=== PATIENT | female | born 1945 | race Caucasian/White ===

== ENCOUNTER 2022-04-21 14:26 | Inpatient (IN) | payer MEDICARE ==
[~2022-04-21] VITALS: Ht 154.9 cm; Wt 65.3 kg
--- NOTE | 2022-04-21 14:35 | NUR ---
BIB RA 97 C/O L HIPE PAIN S/P TRIPPING OVER A CABLE AND FALLING. 100MCG OF FENTANL GIVEN TRAINING AND DEVELOPMENT ASSISTANT. VITALS ARE WITHIN NORMAL LIMITS. AWAITING MD BRAUN.
--- NOTE | 2022-04-21 14:53 | NUR ---
X RAY AT BEDSIDE
[2022-04-21] MEDS ORDERED: MORPHINE SULFATE INJ 4 MG/ML DISP.SYRIN ONE (15:13)
[2022-04-21] MEDS ORDERED: ONDANSETRON HCL/PF 4 MG/2 ML VIAL ONE (15:13)
[2022-04-21] MEDS ORDERED: HYDROMORPHONE 1 MG/1 ML DISP.SYRIN ONE ×2 (15:28→16:44)
[2022-04-21] MEDS ORDERED: IV NS 0.9% 1,000 ML BAG IV ONE (15:30)
[2022-04-21] MEDS ORDERED: ONDANSETRON HCL/PF 4 MG/2 ML VIAL IVP ONE (15:30)
[2022-04-21] MEDS ORDERED: HYDROMORPHONE INJ 2 MG/ML DISP.SYRIN IV ONE ×2 (15:30→17:00)
[2022-04-21] MEDS ORDERED: MORPHINE SULFATE INJ 2 MG/ML DISP.SYRIN IV ONE (15:30)
[2022-04-21 15:35] LABS: BASOPHILS % (AUTO) 0.3 % (0.0-2.0); EOSINOPHILS % (AUTO) 0.3 % (0.0-6.0); HEMATOCRIT 37 % (33-45); HEMOGLOBIN 12.1 g/dL (11.5-14.8); LYMPHOCYTES # (AUTO) 1.3 K/uL (0.8-4.8); LYMPHOCYTES % (AUTO) 12.1 % (20.0-44.0); MEAN CORPUSCULAR HGB CONC 33 g/dl (31.0-36.0); MEAN CORPUSCULAR VOLUME 91 fL (82-100); MONOCYTES # (AUTO) 0.5 K/uL (0.1-1.30); MONOCYTES % (AUTO) 4.7 % (2.0-12.0); NEUTROPHILS # (AUTO) 8.5 K/uL (1.8-8.9); NEUTROPHILS % (AUTO) 82.6 % (43.0-81.0); PLATELET COUNT (AUTO) 256 K/uL (150-450); RED BLOOD CELL COUNT(AUTO) 4.01 MIL/uL (4.0-5.2); WHITE BLOOD COUNT (AUTO) 10.3 K/uL (4.3-11.0)
[2022-04-21 15:53] LABS: ALANINE AMINOTRANSFERASE 41 U/L (12-78); ALBUMIN 3.8 g/dL (3.4-5.0); ALKALINE PHOSPHATASE 69 U/L (46-116); ASPARTATE AMINOTRANSFERASE 30 U/L (15-37); BILIRUBIN,DIRECT 0.1 mg/dL (0.0-0.2); BILIRUBIN,TOTAL 0.7 mg/dL (0.2-1.0); CALCIUM, SERUM 8.7 mg/dL (8.5-10.1); CARBON DIOXIDE 29 mmol/L (21-32); CHLORIDE 108 mmol/L (98-107); CREATININE 0.7 mg/dL (0.6-1.3); GLUCOSE 96 mg/dL (74-106); SODIUM SERUM 142 mmol/L (136-145); TOTAL PROTEIN, SERUM 7.3 g/dL (6.4-8.2); UREA NITROGEN, BLOOD 15 mg/dL (7-18)
--- NOTE | 2022-04-21 16:28 | NUR ---
ROOM 321-1
[2022-04-21] MEDS ORDERED: RIVA10TA PO (16:36)
[2022-04-21] MEDS ORDERED: LEVO75TA7 PO (16:36)
[2022-04-21] MEDS ORDERED: FLEC50TA2 PO (16:36)
--- NOTE | 2022-04-21 16:51 | NUR ---
PT STILL C/O PAIN, DR BALDERAS AWARE. PT MEDICATED ORDERED. SEE EMAR.
--- NOTE | 2022-04-21 17:25 | NUR ---
REPORT GIVEN TO NURSE WAGNER FOR MAURA
--- NOTE | 2022-04-21 18:22 | NUR ---
THE PATIENT IS TRANSFERED TO ROOM 321-1 IN STABLE CONDITION AND PER ACLS POLICY.
[2022-04-21 20:00] VITALS: BP 129/66
--- NOTE | 2022-04-21 20:30 | NUR ---
ADMISSION Patient Addendum: 04/21/22 at 2104 by NAHOMY MCNEIL RN ADMISSION NOTES 76 years old Female arrived to unit today at 1830 per report. Patient is Alert Oriented x4. Limited movement RLE d/t fracture right hip, s/p fall from home. SG Aguilar spoke with the patient and daughter at bedside. Patient plan for OR 48 hours after last dose of Xarelto. Patient states she had Xarelto last night (04/20/22) at 11pm. Regular diet, See catheter as ordered.
--- NOTE | 2022-04-21 20:50 | NUR ---
PAIN Patient in bed, c/o right hip pain. Patient allergy to Morphine per records, patient was given Dilaudid in ER and was tolerated. Patient states she can take Dilaudid without bad reaction. Notified EXCEL SPECIALIST Annamarie Marks with orders placed. Dilaudid 1mg IV q6H PRN.
[2022-04-21] MEDS: HYDROMORPHONE 1 MG/1 ML DISP.SYRIN IV PRN (21:20)
--- NOTE | 2022-04-21 21:23 | NUR ---
PAIN Right hip pain 8/10 described as sharp and pulling. PRN Dilaudid given, will reassess pain level. Fall precaution maintained.
--- NOTE | 2022-04-21 22:00 | NUR ---
SNYDER CATHETER Patient is continent bowel and bladder. Right hip fx. Plan OR. Inserted Snyder catheter for marianna operative. Procedure explained to patient, verbalized understanding.
--- NOTE | 2022-04-22 06:22 | NUR ---
END OF SHIFT REPORT Patient in bed. Stable on room air. Limited movement RLE d/t fx right hip. Right hip pain managed with PRN Dilaudid. See catheter care done. Plan for OR possible surgery right hip fx. Fall precaution maintained. Will endorse to oncoming RN.
[2022-04-22 08:00] VITALS: BP 101/55
[2022-04-22] MEDS: LEVOTHYROXINE SODIUM 75 MCG TABLET PO SCH (08:37)
[2022-04-22] MEDS: HYDROMORPHONE 1 MG/1 ML DISP.SYRIN IV PRN ×2 (08:41→19:55)
[2022-04-22] MEDS ORDERED: ACETAMINOPHEN 325 MG TABLET PO PRN (10:00)
[2022-04-22] MEDS ORDERED: ONDANSETRON HCL/PF 4 MG/2 ML VIAL IVP PRN (10:00)
--- NOTE | 2022-04-22 10:58 | NUR ---
RN OPENING NOTE PATIENT AWAKE IN BED RESTING. A/O X 4. NO PAIN NOTED AT THIS TIME. ON ROOM AIR, NO DISTRESS OR SHORTNESS OF BREATH NOTED. IV ACCESS L HAND #20G, INTACT, PATENT AND FLUSHING WELL. PATIENT HAVE A SNYDER CATHETER IN PLACE AND DRAINING WELL. FALL AND SAFETY MEASURES IN PLACE, BED ALARM ON, BED IN LOW AND LOCK POSITION, CALL LIGHT AND TABLE WITHIN EASY REACH, SIDE RAILS UP X2. WILL CONTINUE TO MONITOR.
[2022-04-22 11:02] LABS: BASOPHILS % (AUTO) 0.3 % (0.0-2.0); EOSINOPHILS % (AUTO) 1.4 % (0.0-6.0); HEMATOCRIT 32 % (33-45); HEMOGLOBIN 10.5 g/dL (11.5-14.8); LYMPHOCYTES # (AUTO) 1.1 K/uL (0.8-4.8); LYMPHOCYTES % (AUTO) 11.2 % (20.0-44.0); MEAN CORPUSCULAR HGB CONC 33 g/dl (31.0-36.0); MEAN CORPUSCULAR VOLUME 92 fL (82-100); MONOCYTES # (AUTO) 0.6 K/uL (0.1-1.30); MONOCYTES % (AUTO) 6.2 % (2.0-12.0); NEUTROPHILS # (AUTO) 7.9 K/uL (1.8-8.9); NEUTROPHILS % (AUTO) 80.9 % (43.0-81.0); PLATELET COUNT (AUTO) 202 K/uL (150-450); RED BLOOD CELL COUNT(AUTO) 3.43 MIL/uL (4.0-5.2); WHITE BLOOD COUNT (AUTO) 9.8 K/uL (4.3-11.0)
[2022-04-22 11:21] LABS: CALCIUM, SERUM 8.3 mg/dL (8.5-10.1); CARBON DIOXIDE 29 mmol/L (21-32); CHLORIDE 107 mmol/L (98-107); CREATININE 0.7 mg/dL (0.6-1.3); GLUCOSE 108 mg/dL (74-106); POTASSIUM 3.9 mmol/L (3.5-5.1); SODIUM SERUM 139 mmol/L (136-145); UREA NITROGEN, BLOOD 12 mg/dL (7-18)
[2022-04-22 16:00] VITALS: BP 124/54
--- NOTE | 2022-04-22 18:52 | NUR ---
RN CLOSING NOTE PATIENT AWAKE IN BED RESTING. A/O X 4. NO PAIN NOTED AT THIS TIME. ON ROOM AIR, NO DISTRESS OR SHORTNESS OF BREATH NOTED. IV ACCESS L HAND #20G, INTACT, PATENT AND FLUSHING WELL. PATIENT HAVE A SNYDER CATHETER IN PLACE AND DRAINING WELL, OUTPUT 200ML. FALL AND SAFETY MEASURES IN PLACE, BED ALARM ON, BED IN LOW AND LOCK POSITION, CALL LIGHT AND TABLE WITHIN EASY REACH, SIDE RAILS UP X2. WILL ENDORSE TO WET MACHINE TENDER.
--- NOTE | 2022-04-22 20:01 | NUR ---
RN OPENING NOTE PATIENT AWAKE IN BED RESTING. A/O X 4. NO PAIN NOTED AT THIS TIME. ON ROOM AIR, NO RESPIRATORY DISTRESS OR SHORTNESS OF BREATH NOTED. PT REPORTED PAIN 8/10 PRN DILAUDID GIVEN AND TOLERATED WELL.IV ACCESS L HAND #20G, INTACT, PATENT AND FLUSHING WELL. PATIENT HAVE A SNYDER CATHETER IN PLACE AND DRAINING WELL, OUTPUT 200ML. FALL AND SAFETY MEASURES IN PLACE, BED ALARM ON, BED IN LOW AND LOCK POSITION, CALL LIGHT AND TABLE WITHIN EASY REACH, SIDE RAILS UP X2. WILL CONTINUE TO MONITOR.
[2022-04-22 20:20] VITALS: BP 90/52
--- NOTE | 2022-04-23 07:30 | NUR ---
RN Opening Note. PT AOx4, sleeping but easily aroused. Patient shows no signs of distress, aware of today's plan for surgery. All safety precautions taken, call light and table within reach, bed at lowest position. Will continue to monitor throughout shift, and will work with Surgery.
[2022-04-23 08:00] VITALS: BP 134/57
[2022-04-23 08:21] LABS: BASOPHILS % (AUTO) 0.3 % (0.0-2.0); EOSINOPHILS % (AUTO) 1.3 % (0.0-6.0); HEMATOCRIT 32 % (33-45); HEMOGLOBIN 10.7 g/dL (11.5-14.8); LYMPHOCYTES # (AUTO) 0.8 K/uL (0.8-4.8); LYMPHOCYTES % (AUTO) 7.9 % (20.0-44.0); MEAN CORPUSCULAR HGB CONC 34 g/dl (31.0-36.0); MEAN CORPUSCULAR VOLUME 92 fL (82-100); MONOCYTES # (AUTO) 0.5 K/uL (0.1-1.30); MONOCYTES % (AUTO) 5.2 % (2.0-12.0); NEUTROPHILS # (AUTO) 8.9 K/uL (1.8-8.9); NEUTROPHILS % (AUTO) 85.3 % (43.0-81.0); PLATELET COUNT (AUTO) 193 K/uL (150-450); WHITE BLOOD COUNT (AUTO) 10.4 K/uL (4.3-11.0)
[2022-04-23 09:34] LABS: CALCIUM, SERUM 8.8 mg/dL (8.5-10.1); CREATININE 0.6 mg/dL (0.6-1.3); MAGNESIUM 2.1 mg/dL (1.8-2.4); PHOSPHORUS 2.4 mg/dL (2.5-4.9); POTASSIUM 3.9 mmol/L (3.5-5.1)
[2022-04-23] MEDS: LEVOTHYROXINE SODIUM 75 MCG TABLET PO SCH (10:15)
[2022-04-23] MEDS ORDERED: VANCOMYCIN 1 GM VIAL ONE (10:24)
[2022-04-23] MEDS ORDERED: ANESTHESIA TRAY IN PYXIS 1 EA TRAY MC ONE (10:27)
[2022-04-23] MEDS ORDERED: BUPIVACAINE 0.25% 75 MG/30 ML VIAL ONE (10:28)
[2022-04-23] MEDS ORDERED: HYDROMORPHONE INJ 2 MG/ML DISP.SYRIN ONE (11:23)
[2022-04-23] MEDS ORDERED: ROCURONIUM BROMIDE 50 MG/5 ML ONE (11:23)
[2022-04-23 12:00] VITALS: BP 107/44
[2022-04-23] MEDS: HYDROMORPHONE 1 MG/1 ML DISP.SYRIN IV PRN (13:54)
[2022-04-23] MEDS: IV D5/0.45 NACL W/20 MEQ KCL 1L IV SCH ×2 (14:19)
[2022-04-23] MEDS ORDERED: Sodium Phosphate 15 MMOL in IV NS 0.9% 245 ML IV SCH (16:00)
[2022-04-23] MEDS: ANCEF 1 GM/50 ML D5W IV SCH ×2 (17:13)
--- NOTE | 2022-04-23 19:42 | NUR ---
RN Closing Notes PT AOx4, able to express her own concerns. States she is comfortable with pain 2/10. Medications running as prescribed to Right hand 20g IV, no signs of infiltration, no pain reported. See urine output is 100ml during my shift. Patient made aware of PT consult and eval in order to ambulate. Dressing clean, dry and intact. All safety precautions taken with patient, no incidents, call light and table within reach, bed at lowest position.
--- NOTE | 2022-04-23 19:43 | NUR ---
RN OPENING NOTE PATIENT AWAKE IN BED RESTING. AA/O X 4. ON ROOM AIR PATRICK WELL.NO SOB/DISTRESS NOTED.NO COMPLAINE OF PAIN/DISCOMFORT AT THIS TIME.IV ACCESS L HAND #20G, INTACT, PATENT AND FLUSHING WELL. PATIENT HAVE A SNYDER CATHETER IN PLACE AND DRAINING BRIDGET URINE.FALL AND SAFETY MEASURES IN PLACE, BED ALARM ON, BED IN LOW AND LOCK POSITION, CALL LIGHT AND TABLE WITHIN EASY REACH, SIDE RAILS UP X2. WILL CONTINUE TO MONITOR.
[2022-04-23 20:00] VITALS: BP 106/46
[2022-04-24] MEDS: ANCEF 1 GM/50 ML D5W IV SCH ×4 (01:14→11:06)
[2022-04-24] MEDS: IV D5/0.45 NACL W/20 MEQ KCL 1L IV SCH ×4 (02:46→17:13)
--- NOTE | 2022-04-24 06:19 | NUR ---
RN CLOSING NOTES; PATIENT AWAKE IN BED RESTING. AA/O X 4. ON ROOM AIR PATRICK WELL.NO SOB/DISTRESS NOTED.NO COMPLAINE OF PAIN/DISCOMFORT AT THIS TIME.IV ACCESS L HAND #20G, INTACT, PATENT AND FLUSHING WELL.DUE MEDS GIVEN ORDERED.ALL NEEDS ATTENDED, PATIENT HAVE A SNYDER CATHETER IN PLACE AND DRAINING BRIDGET URINE OUTPUT 250ML.FALL AND SAFETY MEASURES IN PLACE, BED ALARM ON, BED IN LOW AND LOCK POSITION, CALL LIGHT AND TABLE WITHIN EASY REACH, SIDE RAILS UP X2. WILL ENDORSED TO NEXT SHIFT.
--- NOTE | 2022-04-24 07:23 | NUR ---
RN OPENING NOTE RECEIVED PATIENT IN BED, AWAKE, A/O X4, VERBALLY RESPONSIVE, NO SIGNS OF ACUTE DISTRESS NOTED. ON ROOM AIR, TOLERATING WELL. NO SOB NOTED, BREATHING EVEN AND UNLABORED. WITH IV ACCESS ON LEFT HAND #20G, INTACT AND PATENT, WITH D5 1/2 NS + 20 MEQ KCL INFUSING @ 75 ML/HR. DENIES ANY PAIN AT THIS TIME. F/C INTACT AND PATENT DRAINING CLEAR YELLOW URINE. SAFETY MEASURE IN PLACE. BED IN LOWEST AND LOCKED POSITION, SIDE RAILS UP X2, CALL LIGHT PLACED WITHIN EASY REACH. WILL CONTINUE TO MONITOR PATIENT.
[2022-04-24] MEDS: LEVOTHYROXINE SODIUM 75 MCG TABLET PO SCH (07:58)
[2022-04-24 08:00] VITALS: BP 128/57
[2022-04-24 11:49] LABS: BASOPHILS % (AUTO) 0.2 % (0.0-2.0); EOSINOPHILS % (AUTO) 0.7 % (0.0-6.0); HEMATOCRIT 30 % (33-45); HEMOGLOBIN 10.1 g/dL (11.5-14.8); LYMPHOCYTES # (AUTO) 1.3 K/uL (0.8-4.8); LYMPHOCYTES % (AUTO) 13.5 % (20.0-44.0); MEAN CORPUSCULAR HGB CONC 34 g/dl (31.0-36.0); MEAN CORPUSCULAR VOLUME 92 fL (82-100); MONOCYTES % (AUTO) 10.3 % (2.0-12.0); NEUTROPHILS # (AUTO) 7.4 K/uL (1.8-8.9); NEUTROPHILS % (AUTO) 75.3 % (43.0-81.0); PLATELET COUNT (AUTO) 205 K/uL (150-450); RED BLOOD CELL COUNT(AUTO) 3.27 MIL/uL (4.0-5.2); WHITE BLOOD COUNT (AUTO) 9.9 K/uL (4.3-11.0)
[2022-04-24 12:01] LABS: CALCIUM, SERUM 8.6 mg/dL (8.5-10.1); CREATININE 0.7 mg/dL (0.6-1.3); POTASSIUM 3.9 mmol/L (3.5-5.1)
[2022-04-24 16:00] VITALS: BP 129/56
[2022-04-24] MEDS ORDERED: HEPARIN SODIUM, PORCINE 5000 UNITS/1 ML VIAL SQ SCH (18:00)
[2022-04-24] MEDS ORDERED: HEPARIN SODIUM, PORCINE 5000 UNITS/1 ML VIAL IVF ONE (18:00)
[2022-04-24] MEDS: DOCUSATE SODIUM 100 MG CAPSULE PO SCH (18:15)
[2022-04-24] MEDS: HYDROCODONE/APAP 10/325MG TABLET PO PRN (18:24)
--- NOTE | 2022-04-24 18:50 | NUR ---
RN CLOSING NOTES PATIENT IN BED, AWAKE, A/O X4, VERBALLY RESPONSIVE, NO SIGNS OF ACUTE DISTRESS NOTED. REMMIANS STABLE ON ROOM AIR, NO SOB NOTED, BREATHING EVEN AND UNLABORED. IV ACCESS ON LEFT HAND #20G, INTACT AND PATENT, WITH D5 1/2 NS + 20 MEQ KCL INFUSING @ 75 ML/HR. MEDICATED FOR PAIN ORDERED. DRESSING ON RIGHT HIP CLEAN, DRY AND INTACT. ABDUCTOR PILLOW IN PLACE. WITH F/C INTACT AND PATENT DRAINING CLEAR YELLOW URINE. SAFETY MEASURE IN PLACE. BED IN LOWEST AND LOCKED POSITION, SIDE RAILS UP X2, CALL LIGHT PLACED WITHIN EASY REACH. WILL ENDORSE TO NEXT SHIFT FOR MAURA.
--- NOTE | 2022-04-24 19:30 | NUR ---
MS RN OPENING NOTE RECEIVED PATIENT RESTING IN BED; AWAKE, ALERT AND ORIENTED X4,VERBALLY RESPONSIVE. BREATHING EVEN AND NONLABORED. ON ROOM AIR; WELL TOLERATED. NO SOB NOTED. NOT IN ANY FORM OF RESPIRATORY DISTRESS. WITH IV ACCESS ON LEFT HAND 20G; PATENT AND INTACT INFUSING WITH D5 1/2 + 20 MEQ KCL REGULATED @ 75 ML/HR; FLUSHES WELL, NO INFILTRATION NOTED. WITH SNYDER CATHETER IN PLACE DRAINING TO CLEAR YELLOW URINE OUTPUT. ABLE TO MAKE NEEDS KNOWN. SAFETY MEASURES IMPLEMENTED: CALL LIGHT AND TABLE WITHIN REACH, SIDE RAILS UP X2, BED IN LOWEST LOCKED POSITION. WILL CONTINUE TO MONITOR.
[2022-04-24 20:00] VITALS: BP 129/43
[2022-04-25 06:22] LABS: HEMATOCRIT 28 % (33-45); LYMPHOCYTES % (AUTO) 19.6 % (20.0-44.0); MEAN CORPUSCULAR HGB CONC 33 g/dl (31.0-36.0); MEAN CORPUSCULAR VOLUME 92 fL (82-100); MONOCYTES % (AUTO) 10.1 % (2.0-12.0); NEUTROPHILS % (AUTO) 66.8 % (43.0-81.0); PLATELET COUNT (AUTO) 186 K/uL (150-450); RED BLOOD CELL COUNT(AUTO) 2.99 MIL/uL (4.0-5.2)
[2022-04-25 06:23] LABS: BASOPHILS # (AUTO) 0.1 K/uL (0.0-0.2); BASOPHILS % (AUTO) 0.6 % (0.0-2.0); EOSINOPHILS % (AUTO) 2.9 % (0.0-6.0); LYMPHOCYTES # (AUTO) 1.8 K/uL (0.8-4.8); MONOCYTES # (AUTO) 0.9 K/uL (0.1-1.30)
[2022-04-25] MEDS: IV D5/0.45 NACL W/20 MEQ KCL 1L IV SCH ×2 (06:28)
--- NOTE | 2022-04-25 06:48 | NUR ---
MS RN CLOSING NOTES PATIENT IN BED; AWAKE, A/O X4, VERBALLY RESPONSIVE. STABLE ON ROOM AIR. NO SOB NOTED. RESPIRATIONS EVEN AND UNLABORED. IN NO ACUTE DISTRESS. WITH IV ACCESS ON LEFT HAND 20G; INTACT AND PATENT INFUSING WITH D5 1/2 NS + 20 MEQ KCL REGULATED @ 75 ML/HR; FLUSHES WELL. WITH DRESSING ON RIGHT HIP CLEAN, DRY AND INTACT. ABDUCTOR PILLOW IN PLACE. WITH SNYDER CATHETER IN PLACE; INTACT AND PATENT DRAINING YELLOW URINE OUTPUT. SAFETY MEASURES IN PLACE: CALL LIGHT WITHIN REACH, SIDE RAILS UP X2, BED IN LOWEST LOCKED POSITION. ENDORSED TO MORNING NURSE FOR CONTINUITY OF CARE.
--- NOTE | 2022-04-25 07:30 | NUR ---
MS RN OPENING NOTES RECEIVED PATIENT ON BED AWAKE AND A/O X4. ON ROOM AIR TOLERATING WELL. NO SOB NOTED. NOT IN DISTRESS. WITH NO COMPLAINTS OF PAIN OR DISCOMFORT AT THIS TIME. WITH IV ACCESS AT LEFT HAND G20 WITH IVF D5 1/2NS + KCL 20MEQ AT 75ML/HR INFUSING WELL. WITH SNYDER CATHETER IN PLACED DRAINING TEA-COLORED URINE. SAFETY MEASURES IN PLACED. CALL LIGHT WITHIN REACH. BED ON LOWEST LOCKED POSITION, SIDE RAILS UP X2. WILL CONTINUE TO MONITOR.
[2022-04-25 07:52] LABS: CARBON DIOXIDE 28 mmol/L (21-32); CHLORIDE 106 mmol/L (98-107); CREATININE 0.6 mg/dL (0.6-1.3); GLUCOSE 103 mg/dL (74-106); PHOSPHORUS 2.2 mg/dL (2.5-4.9); POTASSIUM 4.1 mmol/L (3.5-5.1); SODIUM SERUM 138 mmol/L (136-145); UREA NITROGEN, BLOOD 11 mg/dL (7-18)
[2022-04-25] MEDS ORDERED: RIVAROXABAN 10 MG TABLET PO SCH (09:00)
[2022-04-25] MEDS: LEVOTHYROXINE SODIUM 75 MCG TABLET PO SCH (09:01)
[2022-04-25] MEDS: DOCUSATE SODIUM 100 MG CAPSULE PO SCH (09:01)
[2022-04-25 09:57] VITALS: BP 123/59
[2022-04-25] MEDS: HYDROCODONE/APAP 10/325MG TABLET PO PRN (10:45)
[2022-04-25] MEDS ORDERED: DOCU-141 PO (11:34)
[2022-04-25] MEDS ORDERED: NEUTRA PHOS 1 POWD.PACKET PO ONE (16:30)
[2022-04-25 16:32] VITALS: BP 117/54
--- NOTE | 2022-04-25 18:20 | NUR ---
MS RN CLOSING NOTES PATIENT ON BED AWAKE AND A/O X4. ON ROOM AIR TOLERATING WELL. NO SOB NOTED. NOT IN DISTRESS. WITH NO COMPLAINTS OF PAIN OR DISCOMFORT AT THIS TIME. WITH IV ACCESS AT LEFT HAND G20 WITH IVF D5 1/2NS + KCL 20MEQ AT 75ML/HR INFUSING WELL. WITH SNYDER CATHETER IN PLACED DRAINING TEA-COLORED URINE. DUE MEDS GIVEN. SAFETY MEASURES IN PLACED. CALL LIGHT WITHIN REACH. BED ON LOWEST LOCKED POSITION, SIDE RAILS UP X2. WILL ENDORSE TO NEXT SHIFT FOR MAURA.
--- NOTE | 2022-04-25 19:00 | NUR ---
RN NOTE CALLED FRED SHEARER AND GIVEN REPORT TO MADONNA SINGH.
--- NOTE | 2022-04-25 20:05 | NUR ---
MS LANDSCAPING SUPERVISOR NOTE PATIENT AWAKE IN BED, ALERT/ORIENTED X 4, PT STABLE ON RA, NO S/S OF DISTRESS OR SOB NOTED, BREATHING EVEN AND UNLABORED. PATIENT PICKED UP BY EMT'S AND GOING TO [facility]. DISCHARGE PAPERS SIGNED BY PATIENT. BELONGINGS TAKEN BY PATIENT'S DAUGHTER. LEFT HAND IV ACCESS REMOVED. DRESSING ON RIGHT HIP CHANGED. PATIENT LEFT WITH SNYDER CATHETER IN PLACE PER DAYSHIFT RN.
== END 2022-04-25 20:10 | DRG 522 ==
LOC: ER 14:47 → MED 20:14
PROVIDERS: ADMIT Nurse Practitioner Acute Care; ATTEND Nurse Practitioner Acute Care
PROC: 0SRR0JA Replacement of Right Hip Joint, Femoral Surface with Synthetic Substitute, Uncemented, Open Approach (ICD-10-PCS; principal; 2022-04-23)
DX: S72.011A Unspecified intracapsular fracture of right femur, initial encounter for closed fracture (principal); D68.59 Other primary thrombophilia; I48.0 Paroxysmal atrial fibrillation; E03.9 Hypothyroidism, unspecified; Z20.822 Contact with and (suspected) exposure to COVID-19; Z79.01 Long term (current) use of anticoagulants; W01.0XXA Fall on same level from slipping, tripping and stumbling without subsequent striking against object, initial encounter; Z88.5 Allergy status to narcotic agent; Z74.09 Other reduced mobility; Y92.009 Unspecified place in unspecified non-institutional (private) residence as the place of occurrence of the external cause
CPT/HCPCS: 36415; 71045-TC; 73502; 73610-TC; 73620-TC; 73700-TC; 80048-TC; 80061-TC; 80076-TC; 82962-TC; 83735-TC; 84100-TC; 85025-TC; 85610-TC; 85730-TC; 86850-TC; 87081-TC; 97116-TC; 97530-TC; A6209; A6253; A6403; A9563; C1776; C9803; G0378; J0690; J1100; J1170; J1644; J1885; J2270; J2405; J2704; J3370; J3480; J3490; J7030; J7050; J7060